=== PATIENT | male | born 1955 | race Caucasian/White ===

== ENCOUNTER → 2020-07-22 08:58 | Outpatient (BNVA) | payer BC, SELFPAY | PROVIDERS: Visit Provider Internal Medicine Cardiovascular Disease | DX: Z76.89 Persons encountering health services in other specified circumstances (principal) ==

== ENCOUNTER → 2022-08-28 10:02 | Outpatient (BNVA) | payer OTHER, SELFPAY | PROVIDERS: Visit Provider Internal Medicine Cardiovascular Disease | DX: I25.10 Atherosclerotic heart disease of native coronary artery without angina pectoris (principal); I10 Essential (primary) hypertension | CPT/HCPCS: 93005 ==

== ENCOUNTER 2024-02-14 15:08 | Outpatient (AMB) | payer OTHER, SELFPAY ==
--- NOTE | 2024-02-14 15:12 | A.OFFVIS_ITS ---
Vital Signs 02/14/24 15:13 Height 5 ft 9 in Weight 187 lb 13.341 oz BMI 27.7 BP 120/60 Blood Pressure Location Lt brachial Position Sitting Pulse 65 Pulse Source Monitor Intake Visit Reasons: 1 year over due f/u refill on meds Lacer And Tier Required: No Allergies codeine [CODEINE] Allergy (Unknown, Unverified 02/14/24 15:14) HIVES, dizziness Medication List - Last Reconciled 02/14/24 by MARLEY Jurado aspirin (Ecotrin Low Strength) 162 mg PO DAILY atorvastatin 80 mg PO DAILY lisinopril 5 mg PO DAILY metoprolol succinate ER 100 mg PO DAILY nitroglycerin 0.4 mg sublingual Q5M HPI HPI 1 year over due f/u refill on meds: Details: Yoandy is a 68-year-old male with past medical history of hypertension, hyperlipidemia, CAD, ACS with LAD stent placement 12/2011 who presents for follow-up. His last prior visit to our office was 08/28/2022. Since his last visit he had been diagnosed with renal cancer and underwent a right nephrectomy 04/10/2023. Today he reports that he has been doing very well since his nephrectomy. He has had no reoccurrence of cancer. He has not had any cardiac concerns. No chest discomfort at rest or with activity. No shortness of breath, PND, orthopnea or edema. No lightheadedness, palpitations, presyncope, syncope, falls. He walks with his 1.5 miles most days. He lives in [place] and drove 6 hours to get to this appointment. He tells me he has not been able to find a PCP or handle bar assembler in that area. He has only been taking his medications every other day since he is on his last refill given by us. [facility] Medical History CAD (coronary artery disease) HTN (hypertension) Hyperlipidemia Surgical History (Updated 02/14/24 @ 16:09 by HEMA JuradoC) History of kidney removal Stented coronary artery Family History Father No problems noted. Mother No problems noted. Review of Systems Const All systems reviewed & are unremarkable except as noted in HPI and below ENT Denies dizziness Card Denies chest pain, Denies chest pain at rest, Denies chest pain with activity, Denies rapid heart rate, Denies pedal edema, Denies edema, Denies leg edema, Denies lightheadedness, Denies palpitations, Denies dyspnea, Denies dyspnea on exertion and Denies orthopnea Resp Denies cough, Denies dyspnea and Denies dyspnea on exertion GI Denies hematochezia and Denies change in stool character Musc Denies abnormal gait, Denies limited range of motion, Denies muscle cramps, Denies muscle weakness, Denies numbness, Denies radiating pain into limb, Denies stiffness and Denies tingling Neuro Denies abnormal gait, Denies dizziness, Denies numbness and Denies tingling Endo Denies palpitations Physical Exam Vital Signs: Last Vital Signs Pulse 65 02/14/24 15:13 BP 120/60 02/14/24 15:13 BMI result Body Mass Index 27.7 Const General: cooperative, healthy appearing, comfortable and no acute distress Orientation/consciousness: patient oriented x3 Neck Neck: Yes normal visual inspection and Yes no JVD Resp Effort & Inspection: normal respiratory effort Auscultation: clear to auscultation bilaterally, no crackles, no rales, no rhonchi and no wheezes Cardio Jugular venous distension: no JVD Rate: regular rate Rhythm: regular rhythm Heart sounds: S1 normal heart sound present, S2 normal heart sound present, no murmurs and no rubs Neuro General: patient oriented x3 Extrem General: Yes normal to inspection, No no pedal edema and No calf tenderness Psych Appearance: grossly normal Mental Status: mental status grossly normal Speech and movement: Normal speech and movement present Office Procedures EKG Details: Today, read by me, normal sinus rhythm, PACs, some artifact on tracing, QTC 426 milliseconds, rate 65, [id number], Complete Assessment & Plan Assessment & Plan (1) CAD (coronary artery disease): Code(s): I25.10 - Atherosclerotic heart disease of [place] coronary artery without angina pectoris Category: Medical Plan: History of CAD. ACS with LAD stent placement 12/2011. He has done very well since that time. Cardiac testing was ordered on last visit however not completed by patient. He tells me he is living in [place] and does not have a handle bar assembler or PCP in that area. He has no reports of anginal sounding symptoms. His EKG done today shows sinus rhythm with PACs, rate 65. He has been taking his medications every other day since he is on his last refill. He has had no recent medication changes. He continues on aspirin, atorvastatin 80 mg daily, lisinopril and metoprolol. Will give him lab slips today to obtain a fasting CMP and lipids in 6-8 weeks. Will give him orders in hand to obtain an echocardiogram and exercise nuclear stress test. He will be able to obtain them closer to his home and results will come here. Plan to call him with test results. He is going to continue his search for a handle bar assembler. Med refills sent to his pharmacy. Signs and symptoms of angina reviewed. Emergency care if ever needed for symptoms. Cardiology follow-up, this office, 1 year sooner if needed. (2) Stented coronary artery: Comment: Drug-eluting stent to mid LAD for acute coronary syndrome, 3 x 18 mm resolute stent, December 2011 Code(s): Z95.5 - Presence of coronary angioplasty implant and graft Category: Surgical Plan: As above (3) Hyperlipidemia: Code(s): E78.5 - Hyperlipidemia, unspecified Category: Medical Plan: [place] LDL goal less than 70 in patient with CAD. Continue statin therapy. Lab slip given. (4) HTN (hypertension): Code(s): I10 - Essential (primary) hypertension Category: Medical Plan: Blood pressure initially 120/60 however when rechecked by me, 152/68. He has been taking his lisinopril and metoprolol every other day. Will have him resume daily usage of his medications. He does check blood pressures at home periodically. Instructed to call if his systolic blood pressure is running less than 100 or greater than 140. (5) History of kidney removal: Code(s): Z90.5 - Acquired absence of kidney Category: Surgical Plan: Newer finding of renal cancer. He underwent a right nephrectomy, 04/10/2023. He follows with specialist in [place] for this problem. Plan Time spent on chart review, documentation, interview and assessment Orders: Orders CA echo transthoracic complete Today I10 - Essential (primary) hypertension, I25.10 - Atherosclerotic heart disease of [place] coronary artery without angina pectoris, Z95.5 - Presence of coronary angioplasty implant and graft CA stress test Today I25.10 - Atherosclerotic heart disease of [place] coronary artery without angina pectoris, Z95.5 - Presence of coronary angioplasty implant and graft NM cardiolite stress test Today I25.10 - Atherosclerotic heart disease of [place] coronary artery without angina pectoris, Z95.5 - Presence of coronary angioplasty implant and graft Lipid Panel Today I25.10 - Atherosclerotic heart disease of [place] coronary artery without angina pectoris Comprehensive [place]. Panel Fast Today I25.10 - Atherosclerotic heart disease of [place] coronary artery without angina pectoris Medications: Changed From atorvastatin OVERDUE FOR APPT. PLEASE CALL [phone] TO SCHEDULE AN APPT SO WE CAN CONTINUE TO REFILL THIS MED. 80 mg PO DAILY 90 tabs 0RF To atorvastatin 80 mg PO DAILY 90 tabs 3RF From metoprolol succinate ER OVERDUE FOR APPT. PLEASE CALL [phone] TO SCHEDULE AN APPT SO WE CAN CONTINUE TO REFILL THIS MED. 100 mg PO DAILY 90 tabs 0RF To metoprolol succinate ER 100 mg PO DAILY 90 tabs 3RF From lisinopril OVERDUE FOR APPT. PLEASE CALL [phone] TO SCHEDULE AN APPT SO WE CAN CONTINUE REFILLING THIS MED. 5 mg PO DAILY 90 tabs 0RF To lisinopril 5 mg PO DAILY 90 tabs 3RF From aspirin (Ecotrin Low Strength) 162 mg PO DAILY To aspirin (Ecotrin Low Strength) 81 mg PO DAILY Discontinued nitroglycerin Discontinued Reason: Patient no longer taking 0.4 mg sublingual Q5M 25 tabs 0RF for angina Coding Level of Care Code Est Pt Level 4 (92637) Diagnoses CAD (coronary artery disease) I25.10 Stented coronary artery Z95.5 Hyperlipidemia E78.5 HTN (hypertension) I10 History of kidney removal Z90.5 CPT Codes EKG - CPT: 86043-[id number], Complete ([id number]) Time Spent (min) 30
[2024-02-14 15:13] VITALS: BP 120/60; PULSE 65; BMI 27.7
== END 2024-02-14 15:45 | disposition home or self-care (01) ==
PROVIDERS: Visit Provider Nurse Practitioner Family
DX: I25.10 Atherosclerotic heart disease of native coronary artery without angina pectoris (principal); Z95.5 Presence of coronary angioplasty implant and graft; E78.5 Hyperlipidemia, unspecified; I10 Essential (primary) hypertension; Z90.5 Acquired absence of kidney
CPT/HCPCS: 93010; 99214

== ENCOUNTER → 2024-02-14 15:08 | Outpatient (BNVA) | payer OTHER, SELFPAY | PROVIDERS: Visit Provider Nurse Practitioner Family | DX: I25.10 Atherosclerotic heart disease of native coronary artery without angina pectoris (principal); E78.5 Hyperlipidemia, unspecified; I10 Essential (primary) hypertension; Z95.5 Presence of coronary angioplasty implant and graft; Z90.5 Acquired absence of kidney; Z79.899 Other long term (current) drug therapy | CPT/HCPCS: 93005 ==

== ENCOUNTER 2025-03-30 10:31 | Outpatient (AMB) | payer MEDICARE, OTHER, SELFPAY ==
[2025-03-30 10:46] VITALS: BP 120/80; PULSE 63; BMI 26.7
--- NOTE | 2025-03-30 10:46 | A.OFFVIS_ITS ---
Vital Signs 03/30/25 10:46 Height 5 ft 9 in Weight 180 lb 12.465 oz BMI 26.7 BP 120/80 Blood Pressure Location Lt brachial Position Sitting Pulse 63 Intake Visit Reasons: 1 yr follow up Intake Note: 1 year follow-up with ekg feeling good Press Room Supervisor Required: No Allergies codeine (CODEINE) Allergy (Unknown, Unverified 02/14/24 15:14) HIVES, dizziness Medication List - Last Reconciled 03/30/25 by Thomas Odell MD aspirin (Ecotrin Low Strength) 81 mg PO DAILY atorvastatin 80 mg PO DAILY lisinopril 5 mg PO DAILY metoprolol succinate ER 100 mg PO DAILY HPI Comments Details: Yoandy comes for his annual follow-up. He still lives in [place]. He has no cardiac symptoms. He said he walks 3-5 miles on a daily basis without any exertional symptoms. He had a myocardial perfusion imaging last year which was reported as normal. He has been taking all his medications. Last LDL well optimized in the 40s. His blood pressure has been well healed well controlled. His last creatinine of 1.52, being followed by Urology. He is currently not seeing any flame gouger. He denies any prolonged palpitation irregular heartbeat. No heart failure symptoms. [facility] Medical History CAD (coronary artery disease) HTN (hypertension) Hyperlipidemia Surgical History History of kidney removal Stented coronary artery Family History Father No problems noted. Mother No problems noted. Review of Systems Const Denies chills, Denies fatigue, Denies fever(s), Denies frequent falls, Denies weakness, Denies weight gain and Denies weight loss ENT Denies dizziness Card Denies chest pain, Denies leg edema, Denies lightheadedness, Denies palpitations, Denies dyspnea, Denies dyspnea on exertion, Denies orthopnea and Denies other (loss of consciousness) Resp Denies cough, Denies dyspnea and Denies dyspnea on exertion GI Denies hematochezia and Denies change in stool character Musc Denies abnormal gait, Denies muscle weakness, Denies numbness, Denies radiating pain into limb and Denies tingling Neuro Denies abnormal gait, Denies dizziness, Denies frequent falls, Denies numbness, Denies tingling and Denies weakness Endo Denies fatigue and Denies palpitations Physical Exam Vital Signs: Last Vital Signs Pulse 63 03/30/25 10:46 BP 120/80 03/30/25 10:46 BMI result Body Mass Index 26.7 Const General: cooperative, healthy appearing, comfortable and no acute distress Orientation/consciousness: patient oriented x3 Neck Neck: Yes normal visual inspection and Yes no JVD Resp Effort & Inspection: normal respiratory effort Auscultation: clear to auscultation bilaterally, no crackles, no rales, no rhonchi and no wheezes Cardio Jugular venous distension: no JVD Rate: regular rate Rhythm: regular rhythm Heart sounds: S1 normal heart sound present, S2 normal heart sound present, no murmurs and no rubs Neuro General: patient oriented x3 Extrem General: Yes normal to inspection, No no pedal edema and No calf tenderness Psych Appearance: grossly normal Mental Status: mental status grossly normal Speech and movement: Normal speech and movement present Office Procedures EKG Details: EKG shows normal sinus rhythm with sinus arrhythmia otherwise normal EKG [id number], Complete Assessment & Plan Assessment & Plan (1) CAD (coronary artery disease): Code(s): I25.10 - Atherosclerotic heart disease of [place] coronary artery without angina pectoris Category: Medical Plan: CAD without any current symptoms. Stable. Follow up in the nuclear results which we do not have in the chart for unclear reasons although he is currently not having symptoms of management will be medical. Continue lifelong aspirin therapy. Continue high-intensity statin therapy with well optimized LDL at this point time. Continue aggressive blood pressure control. Continue to maintain activity level as tolerated. He understands and agrees. (2) HTN (hypertension): Code(s): I10 - Essential (primary) hypertension Category: Medical Plan: Hypertension which is currently well optimized advised to monitor blood pressure at home and maintain a log. Goal blood pressure less than 130/84. Low-salt diet was advised. Advised to consider Nephrology consultation given his rising creatinine. He has history of nephrectomy for renal cell carcinoma which could contribute to elevated creatinine. Will follow up in the clinic in 1 year's time, sooner p.r.n.. Thank you for allowing me to partake in his care Orders: Orders Lipid Panel 9 Months I25.10 - Atherosclerotic heart disease of [place] coronary artery without angina pectoris Coding Level of Care Code Est Pt Level 4 (89864) Complex EM visit Add On G2211 Diagnoses CAD (coronary artery disease) I25.10 HTN (hypertension) I10 CPT Codes EKG - CPT: 87801-[id number], Complete ([id number])
--- OUTSIDE RECORDS SUMMARY | 2025-03-30 13:33 | XMS_ITS ---
Author Name [facility] Organization Unknown Results Test Name/Text Value Interpretation Date Range Source Estimated GFR 54.0 mL/min/1.73 sqm Normal 04/11/2023 [facility] POTASSIUM 4.8 mmol/L Normal 04/11/2023 3.5 - 5 [facility] ANION GAP 6.0 Normal 04/11/2023 4 - 12 [facility] CALCIUM 8.4 mg/dL Normal 04/11/2023 8.4 - 10.3 [facility] CHLORIDE 102.0 mmol/L Normal 04/11/2023 98 - 107 [facility] CREATININE 1.4 mg/dL Above high normal 04/11/2023 0.7 - 1.3 [facility] BUN 17.0 mg/dL Normal 04/11/2023 8 - 22 [facility] SODIUM 134.0 mmol/L Below low normal 04/11/2023 136 - 146 [facility] TOTAL CO2 26.0 mmol/L Normal 04/11/2023 24 - 32 [facility] GLUCOSE 132.0 mg/dL Above high normal 04/11/2023 70 - 99 [facility] RDW 13.1 % Normal 04/11/2023 11.5 - 14.5 [facility] WBC 12.3 x10E3/uL Above high normal 04/11/2023 3.9 - 1 0.6 [facility] MCH 29.6 pg Normal 04/11/2023 26.5 - 34 [facility] HCT 34.8 % Below low normal 04/11/2023 40 - 52 [facility] HS PLATELET 236.0 x10E3/uL Normal 04/11/2023 150 - 400 [facility] MCHC 33.9 g/dL Normal 04/11/2023 31.5 - 36.3 [facility] RBC NUC <1.0 /100 WBC Normal 04/11/2023 [facility] HGB 11.8 g/dL Below low normal 04/11/2023 13.3 - 17.7 [facility] RBC 3.98 x10E6/uL Below low normal 04/11/2023 4.4 - 5. 9 [facility] MPV 10.6 fL Normal 04/11/2023 6.5 - 12.8 [facility] MCV 87.4 fL Normal 04/11/2023 80 - 100 [facility] Assessment and Plan ID Update Date Source Alert Text [place] [employer]-[id number] 10/27/2021 [place] [facility] COVID Vaccination: This patient has received the MOD, COVID-19, mRNA, LNP-S, PF, 0.5mL vaccination on 10/27/2021 with lot number [id number] at [facility] #[id number] - [address]. [place] [facility]-[id number] 05/13/2021 [place] [employer] COVID Vaccination: This patient has received the MOD, COVID-19, mRNA, LNP-S, PF, 0.5mL vaccination on 05/13/2021 with lot number [id number] at [facility] #[id number] - [address]. [place] [facility]-[id number] 10/08/2020 [place] [employer] COVID Vaccination: This patient has received the MOD, COVID-19, mRNA, LNP-S, PF, 0.5mL vaccination on 10/08/2020 with lot number [id number] at [facility] ([facility]). [place] [facility]-[id number] 09/10/2020 [place] [employer] COVID Vaccination: This patient has received the MOD, COVID-19, mRNA, LNP-S, PF, 0.5mL vaccination on 09/10/2020 with lot number [id number] at [facility] ([facility]). Encounters Encounter Type Encounter Reason Primary Diagnosis Location Date Ambulatory I25.10;Atherosclero tic heart disease of [place] coronary artery without angina pectoris Aths[facility] heart disease of [place] coronary artery w/o ang pctrs [facility] 01/14/2025 Emergency BLOOD IN URINE, TROUBLE URINATING Hematuria, unspecified [facility] 03/25/2023 Ambulatory [facility] 03/25 Care Team Organization Name Specialty Phone Email Start Date End Da te [facility] Data Feeds 08/18/2023 03/18/2025 [facility] 08/05/2023 [facility] none Primary Care 08/05/2023 [facility] 03/26/2023 [facility] none none Primary Care 03/2503/25/2023
--- OUTSIDE RECORDS SUMMARY | 2025-03-30 13:33 | XMS_ITS | Patient Health Record ---
Author Organization [facility] Address [address] [place] [address] Care Team Providers Care Energy And Sustainability Manager Name Role Phone None, None Primary Care Provider Unavailabl e Allergies Allergen (clinical drug ingredient) Drug/Non Drug Allergy documented on EMR Reaction Allergy Type Onset Date Status codeine Codeine Unknown Drug Allergy Active Reason For Referral No Information Medications Medication SIG (Take, Route, Fr equency, Duration) Notes Start Date End Date Status Atorvastatin Calcium Active Amoxicillin Active Metoprolol Succinate ER Active Lisinopril Active Aspirin Active Social History Tobacco Use: Social History Observation Description Date Details (start date - stop date) Never Smoker NA - NA Tobacco Use/Smoking Question Answer Notes You are a nonsmoker Plan Of Treatment No Information Insurance Providers Payer Name Payer Address Payer Phone Subscriber Number Group Number Insured Name Patient Relationship to Insured Coverage Start Date Coverage End Date [employer] [address] [place]HADIJAH Rincon [phone] [id number] SAUMYA MARTINEZ Self - patient is the insured
== END 2025-03-30 11:20 | disposition home or self-care (01) ==
LOC: HO.HCS 10:32
PROVIDERS: Visit Provider Internal Medicine Cardiovascular Disease
DX: I25.10 Atherosclerotic heart disease of native coronary artery without angina pectoris (principal); I10 Essential (primary) hypertension
CPT/HCPCS: 93010; 99214; G2211

== ENCOUNTER → 2025-03-30 10:31 | Outpatient (BNVA) | payer MEDICARE, OTHER, SELFPAY | PROVIDERS: Visit Provider Internal Medicine Cardiovascular Disease | DX: I25.10 Atherosclerotic heart disease of native coronary artery without angina pectoris (principal); I10 Essential (primary) hypertension | CPT/HCPCS: 93005; 99212 ==